=== PATIENT | female | born 1990 | race African-American/Black ===

== ENCOUNTER 2017-06-22 14:49 | Inpatient (IN) | payer MEDICAID ==
[~2017-06-22] VITALS: Ht 157.5 cm; Wt 80.3 kg
[2017-06-22] MEDS: AMPICILLIN 2,000 MG in NACL 0.9% 100 ML IV SCH ×2
[2017-06-22] MEDS: LACTATED RINGERS 1,000 ML IV SCH (08:00)
[2017-06-22 14:50] VITALS: BP 116/65
--- NOTE | 2017-06-22 15:16 | NUR ---
Patient discharged with v/s stable. Written and verbal after care instructions given and explained. Patient verbalized understanding. Patient w/c assisted to L&D for evaluation and patient to return if other evaluation is needed. Discharge instructions given to patient. Pt made aware she would be going to L&D and brought back to ED if necessary. accompanied patient.
[2017-06-22 18:17] LABS: BASOPHILS # (AUTO) 0.1 K/uL (0.00-0.22); BASOPHILS % (AUTO) 0.4 % (0.0-2.0); HEMATOCRIT 34.1 % (36-48); HEMOGLOBIN 11.2 g/dL (12.0-16.0); LYMPHOCYTES % (AUTO) 6.3 % (20.5-51.1); MEAN CORPUSCULAR HEMOGLOBIN 28 pg (27-31); MEAN CORPUSCULAR HGB CONC 33 g/dL (33-37); MEAN CORPUSCULAR VOLUME 86.3 fL (80-94); MONOCYTES # (AUTO) 0.7 K/uL (0.8-1.0); MONOCYTES % (AUTO) 4.6 % (1.7-9.3); NEUTROPHILS # (AUTO) 13.6 K/uL (1.8-7.7); NEUTROPHILS % (AUTO) 88.7 % (42.2-75.2); PLATELET COUNT (AUTO) 248 K/uL (140-450); RED BLOOD CELL COUNT(AUTO) 3.95 MIL/uL (4.20-5.40); WHITE BLOOD COUNT (AUTO) 15.3 K/uL (4.8-10.8)
[2017-06-22 18:22] LABS: APPEARANCE,URINE CLEAR (CLEAR); BILIRUBIN,URINE NEGATIVE (NEGATIVE); BLOOD, URINE 3+ (NEGATIVE); COLOR,URINE YELLOW (YELLOW); LEUKOCYTE ESTERASE ,URINE TRACE (NEGATIVE); NITRITE, URINE NEGATIVE (NEGATIVE); PH,URINE 6.5 (5.0-9.0); UGLUCOSE NEGATIVE (NEGATIVE)
[2017-06-22 18:37] LABS: RBC,URINE 0-5 (RARE) /HPF (0-5)
[2017-06-22] MEDS ORDERED: LACTATED RINGERS 1,000 ML IV SCH (19:00)
[2017-06-22] MEDS ORDERED: GENTAMICIN PER PHARMACY MC PRN (19:00)
[2017-06-22] MEDS ORDERED: NALBUPHINE 10 MG/ML AMP IVP PRN (19:00)
[2017-06-22] MEDS ORDERED: GENTAMICIN 120 MG in DEXTROSE 5% 100 ML IV SCH (20:00)
[2017-06-22] MEDS ORDERED: GENTAMICIN 80 MG/2 ML VIAL ONE ×2 (20:44→20:50)
[2017-06-22 22:02] VITALS: BP 102/56
[2017-06-22] MEDS ORDERED: MORPHINE SULFATE 10 MG/ML SYR ONE (23:00)
[2017-06-22] MEDS ORDERED: MORPHINE SULFATE 10 MG/ML SYR IM SCH (23:15)
[2017-06-22] MEDS ORDERED: AMPICILLIN 2,000 MG VIAL ONE (23:44)
[2017-06-23] MEDS ORDERED: GENTAMICIN 80 MG/2 ML VIAL ONE (02:16)
[2017-06-23] MEDS: AMPICILLIN 2,000 MG in NACL 0.9% 100 ML IV SCH ×5 (04:00→20:05)
[2017-06-23] MEDS ORDERED: ACETAMINOPHEN 325 MG TAB ONE ×2 (05:03→16:33)
[2017-06-23] MEDS: GENTAMICIN 100 MG in DEXTROSE 5% 100 ML IV SCH ×3 (05:16→21:05)
[2017-06-23] MEDS: ACETAMINOPHEN 325 MG TAB PO PRN ×2 (05:17→16:38)
[2017-06-23] MEDS ORDERED: AMPICILLIN 2,000 MG VIAL ONE ×5 (07:50→23:56)
[2017-06-23 08:51] LABS: BASOPHILS % (AUTO) 0.4 % (0.0-2.0); EOSINOPHILS % (AUTO) 0.1 % (0.0-4.0); HEMOGLOBIN 9.6 g/dL (12.0-16.0); LYMPHOCYTES % (AUTO) 9.1 % (20.5-51.1); MEAN CORPUSCULAR HEMOGLOBIN 29 pg (27-31); MEAN CORPUSCULAR HGB CONC 33 g/dL (33-37); MEAN CORPUSCULAR VOLUME 86.8 fL (80-94); MONOCYTES # (AUTO) 0.9 K/uL (0.8-1.0); MONOCYTES % (AUTO) 7.7 % (1.7-9.3); NEUTROPHILS # (AUTO) 9.6 K/uL (1.8-7.7); NEUTROPHILS % (AUTO) 82.7 % (42.2-75.2); PLATELET COUNT (AUTO) 209 K/uL (140-450); RED BLOOD CELL COUNT(AUTO) 3.34 MIL/uL (4.20-5.40); WHITE BLOOD COUNT (AUTO) 11.6 K/uL (4.8-10.8)
[2017-06-23 09:07] LABS: ANION GAP 12.2 (8-16); CARBON DIOXIDE 24.3 mmol/L (21-32); CREATININE 0.5 mg/dL (0.6-1.3); POTASSIUM 3.5 mmol/L (3.5-5.1)
[2017-06-23] MEDS: LACTATED RINGERS 1,000 ML IV SCH (15:15)
[2017-06-24] MEDS: AMPICILLIN 2,000 MG in NACL 0.9% 100 ML IV SCH ×5 (00:09→18:00)
[2017-06-24] MEDS: LACTATED RINGERS 1,000 ML IV SCH ×4 (00:10→15:05)
[2017-06-24] MEDS ORDERED: AMPICILLIN 2,000 MG VIAL ONE ×5 (03:49→23:47)
[2017-06-24] MEDS: GENTAMICIN 100 MG in DEXTROSE 5% 100 ML IV SCH ×3 (05:03→21:31)
[2017-06-24 06:45] LABS: BASOPHILS % (AUTO) 0.2 % (0.0-2.0); EOSINOPHILS % (AUTO) 0.1 % (0.0-4.0); HEMATOCRIT 26.9 % (36-48); HEMOGLOBIN 9.1 g/dL (12.0-16.0); LYMPHOCYTES # (AUTO) 1.4 K/uL (2.5-16.5); LYMPHOCYTES % (AUTO) 11.8 % (20.5-51.1); MEAN CORPUSCULAR HEMOGLOBIN 29 pg (27-31); MEAN CORPUSCULAR HGB CONC 34 g/dL (33-37); MEAN CORPUSCULAR VOLUME 86.1 fL (80-94); MONOCYTES # (AUTO) 0.9 K/uL (0.8-1.0); MONOCYTES % (AUTO) 7.9 % (1.7-9.3); NEUTROPHILS # (AUTO) 9.3 K/uL (1.8-7.7); PLATELET COUNT (AUTO) 199 K/uL (140-450); RED BLOOD CELL COUNT(AUTO) 3.12 MIL/uL (4.20-5.40); RED CELL DISTRIBUTION WIDTH 14.1 % (11.6-13.7); WHITE BLOOD COUNT (AUTO) 11.7 K/uL (4.8-10.8)
[2017-06-24 06:55] LABS: ANION GAP 11.6 (8-16); CARBON DIOXIDE 24.3 mmol/L (21-32); CREATININE 0.5 mg/dL (0.6-1.3)
[2017-06-24 06:59] LABS: POTASSIUM 2.9 mmol/L (3.5-5.1)
--- NOTE | 2017-06-24 08:18 | NUR ---
PATIENT HAS BEEN SCREENED AND CATEGORIZED LOW RISK. PATIENT WILL BE SEEN WITHIN 7 DAYS OF ADMISSION. 06/29/[address], [facility]
[2017-06-25] MEDS ORDERED: AMPICILLIN 2,000 MG in NACL 0.9% 100 ML IV SCH ×2
[2017-06-25] MEDS ORDERED: AMPICILLIN 2,000 MG VIAL ONE ×3 (05:21→17:35)
[2017-06-25] MEDS: GENTAMICIN 100 MG in DEXTROSE 5% 100 ML IV SCH (05:27)
[2017-06-25] MEDS: GENTAMICIN PER PHARMACY MC PRN ×2 (13:22→21:29)
[2017-06-26] MEDS: LACTATED RINGERS 1,000 ML IV SCH (03:15)
[2017-06-26] MEDS: GENTAMICIN PER PHARMACY MC PRN (04:59)
[2017-06-26] MEDS: GENTAMICIN 100 MG in DEXTROSE 5% 100 ML IV SCH (13:35)
== END 2017-06-26 15:10 | disposition home or self-care (01) | DRG 566 ==
LOC: MED 14:49 → MFCC 15:00 → EDSTATUS 15:16 → MFCC 19:45 → OBSVTOIN 20:52
PROVIDERS: ADMIT Obstetrics & Gynecology; ATTEND Obstetrics & Gynecology
DX: O23.42 Unspecified infection of urinary tract in pregnancy, second trimester (principal); O26.832 Pregnancy related renal disease, second trimester; B96.1 Klebsiella pneumoniae [K. pneumoniae] as the cause of diseases classified elsewhere; N20.0 Calculus of kidney; Z3A.24 24 weeks gestation of pregnancy
CPT/HCPCS: G0378 ×6; 36415; 51702; 76770; 76805; 80048; 80170; 81001; 85025; 87086; 87186; C1758; J0290; J1580; J2270; J7060; J7120; Q0092